=== PATIENT | female | born 1985 | race Caucasian/White ===

== ENCOUNTER 2016-07-22 08:22 | Emergency (ER) | payer MEDICAID | END 2016-07-22 08:55 | disposition home or self-care (01) | DX: K04.7 Periapical abscess without sinus (principal); R03.0 Elevated blood-pressure reading, without diagnosis of hypertension; F17.200 Nicotine dependence, unspecified, uncomplicated ==

== ENCOUNTER 2017-05-23 23:51 | Emergency (ER) | payer MEDICAID ==
--- NOTE | 2017-05-24 00:56 | ED Physician Documentation ---
PD HPI ABD PAIN - Stated complaint Stated Complaint: ABDOMINAL PAIN - Chief complaint Chief Complaint: Abd Pain - History obtained from History obtained from: Patient - History of Present Illness Timing - onset: How many hours ago (approximately 4 hours INSOLE FILLER), Today Timing - details: Abrupt onset Pain level now: 5 Quality: Pain Location: RUQ, Epigastric, LUQ Radiation: No: Chest, , Lower back, Left flank, Left shoulder, Right flank, Right shoulder, Upper back Improved by: Other (no ameliorating factors) Worsened by: Palpation Associated symptoms: Diarrhea. No: Fever, Vomiting Similar symptoms before: Has not had sx before Recently seen: Other (PMD lasr week for cough, no testing or prescription) - Additional information Additional information: c/o 4 hours of sudden onset upper abdominal pain, waxing and waning. also cough x 1-2 months. Review of Systems Constitutional: reports: Reviewed and negative Cardiac: reports: Reviewed and negative Respiratory: reports: Cough. denies: Dyspnea GI: reports: Abdominal Pain, Diarrhea. 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 - Past Surgical History Past Surgical History: Yes General: Appendectomy HEENT: Tonsil/Adenoidectomy - Present Medications Home Medications: Ambulatory Orders Medication Instructions Recorded Confirmed Amoxicillin 500 mg PO TID #21 capsule 07/22/16 oxyCODONE/ACET 5/325 [Percocet 5 1 each PO Q4-6H PRN #12 tablet 07/22/16 mg/325 mg] Benzonatate [Tessalon Perle] 100 mg PO Q6HR PRN #20 capsule 05/24/17 guaiFENesin/CODEINE [Robitussin AC] 5 - 10 ml PO Q6H PRN #100 udc 05/24/17 - Allergies Allergies/Adverse Reactions: Allergies Allergy/AdvReac Type Severity Reaction Status Date / Time acetaminophen [From Vicodin] AdvReac Emesis Verified 05/23/17 23:54 hydrocodone bitartrate * AdvReac Emesis Verified 05/23/17 23:54 [From Vicodin] - Social History Does the pt smoke?: Yes Smoking Status: Current every day smoker Does the pt drink ETOH?: No Does the pt have substance abuse?: No - Immunizations Immunizations are current?: Yes - POLST Patient has POLST: No PD ED PE NORMAL - Vitals Vital signs reviewed: Yes - General General: Alert and oriented X 3, No acute distress, Well developed/nourished - Cardiac Cardiac: RRR, No murmur - Respiratory Respiratory: No respiratory distress, Clear bilaterally - Abdomen Abdomen: Normal bowel sounds, Soft, Non distended, No organomegaly, Other (mild RUQ and epigastric tenderness) - Back Back: No CVA TTP - Derm Derm: Normal color, Warm and dry Results - Vitals Vitals: Vital Signs - 24 hr 05/23/17 05/24/17 23:54 03:35 Temperature 36.7 C Heart Rate 90 55 L Respiratory 18 16 Rate Blood Pressure 128/89 H 113/75 O2 Saturation 97 98 Oxygen O2 Source Room air - Labs Labs: Laboratory Tests 05/24/17 05/24/17 05/24/17 01:15 01:15 01:25 WBC 11.5 H RBC 5.17 Hgb 14.0 Hct 43.0 MCV 83.2 MCH 27.2 MCHC 32.7 RDW 12.9 Plt Count 203 MPV 9.0 Neut # 7.6 H Lymph # 2.5 [place] # 1.0 Eos # 0.4 Baso # 0.1 Absolute Nucleated RBC 0.00 Nucleated RBC % 0.0 Sodium 138 Potassium 3.7 Chloride 104 Carbon Dioxide 27 Anion Gap 7.0 BUN 13 Creatinine 0.6 Estimated GFR (MDRD) 117 Glucose 91 Calcium 8.9 Total Bilirubin 0.3 AST 15 ALT 16 Alkaline Phosphatase 61 Total Protein 7.3 Albumin 4.3 Globulin 3.0 Albumin/Globulin Ratio 1.4 Lipase 18 L Urine Color YELLOW Urine Clarity CLEAR Urine pH 6.0 Ur Specific [place] >=1.030 H Urine Protein NEGATIVE Urine Glucose (UA) NEGATIVE Urine Ketones NEGATIVE Urine Occult Blood TRACE-LYSE Urine Nitrite NEGATIVE Urine Bilirubin NEGATIVE Urine Urobilinogen 0.2 (NORMAL) Ur Leukocyte Esterase NEGATIVE Ur Microscopic Review NOT INDICATED Urine Culture Comments NOT INDICATED Urine HCG, Qual NEGATIVE - Rads (name of study) RUQ US Radiology: Prelim report reviewed, See rad report PD MEDICAL DECISION MAKING - ED course Complexity details: reviewed results, re-evaluated patient, considered differential, d/w patient Departure - Departure Disposition: 01 Home, Self Care Clinical Impression: Abdominal pain, Viral URI with cough Condition: Good Instructions: ED Abdominal Pain Unkn Cause, ED Upper Resp Infec No Abx Tx Prescriptions: Benzonatate [Tessalon Perle] 100 mg PO Q6HR PRN #20 capsule PRN Reason: Cough guaiFENesin/CODEINE [Robitussin AC] 5 - 10 ml PO Q6H PRN #100 udc PRN Reason: Cough Discharge Date/Time: 05/24/17 04:51
[2017-05-24 01:33] LABS: BILIRUBIN,URINE NEGATIVE (NEGATIVE); GLUCOSE, URINE (UA) NEGATIVE (NEGATIVE); KETONES,URINE (UA) NEGATIVE (NEGATIVE); LEUKOCYTE ESTERASE, URINE NEGATIVE (NEGATIVE); NITRITE,URINE NEGATIVE (NEGATIVE); OCCULT BLOOD,URINE TRACE-LYSE (NEGATIVE); PROTEIN,URINE NEGATIVE (NEGATIVE); UROBILINOGEN,URINE 0.2 (NORMAL) E.U./dL (NORMAL)
[2017-05-24 01:34] LABS: CLARITY,URINE CLEAR (CLEAR)
[2017-05-24 01:35] LABS: HCG UR QUAL NEGATIVE
[2017-05-24 01:37] LABS: ALBUMIN 4.3 g/dL (3.2-5.5); ALBUMIN/GLOBULIN RATIO 1.4 (1.0-2.2); BILIRUBIN,TOTAL 0.3 mg/dL (0.2-1.0); CALCIUM 8.9 mg/dL (8.5-10.3); CREATININE 0.6 mg/dL (0.4-1.0); TOTAL PROTEIN 7.3 g/dL (6.7-8.2)
[2017-05-24 02:02] LABS: BASOPHILS # (AUTO) 0.1 10^3/uL (0.0-0.1); BASOPHILS % (AUTO) 0.5 %; EOSINOPHILS # (AUTO) 0.4 10^3/uL (0.0-0.7); EOSINOPHILS % (AUTO) 3.3 %; LYMPHOCYTES # (AUTO) 2.5 10^3/uL (1.5-3.5); LYMPHOCYTES % (AUTO) 22.1 %; MEAN CORPUSCULAR HEMOGLOBIN 27.2 pg (27.0-31.0); MEAN CORPUSCULAR HGB CONC 32.7 g/dL (32.0-36.0); MEAN CORPUSCULAR VOLUME 83.2 fL (81.0-99.0); MONOCYTES % (AUTO) 8.3 %; NEUTROPHILS # (AUTO) 7.6 10^3/uL (1.5-6.6); NEUTROPHILS % (AUTO) 65.8 %; PLT - PLATELET COUNT 203 10^3/uL (130-450); RED BLOOD COUNT 5.17 10^6/uL (4.20-5.40); RED CELL DISTRIBUTION WIDTH 12.9 % (12.0-15.0); WHITE BLOOD COUNT 11.5 x10^3/uL (4.8-10.8)
--- NOTE | 2017-05-24 02:16 | XRAY Report ---
EXAM: CHEST RADIOGRAPHY EXAM DATE: 05/24/2017 01:37 AM. CLINICAL HISTORY: Cough, dyspnea. COMPARISON: 12/07/2008 TECHNIQUE: 2 views. FINDINGS: Lungs/Pleura: No focal opacities evident. No pleural effusion. No pneumothorax. Normal volumes. Mediastinum: Heart and mediastinal contours are unremarkable. Other: None. IMPRESSION: Stable appearance of the chest without acute cardiopulmonary abnormality. [facility] Referring Provider Line: [phone] SITE ID: [id number]
--- NOTE | 2017-05-24 02:16 | XRAY Preliminary Report ---
Exam: XR CHEST 2 VIEW X-RAY IMPRESSION: Stable appearance of the chest without acute cardiopulmonary abnormality. [facility] SITE ID: [id number]
--- NOTE | 2017-05-24 03:13 | Ultrasound Preliminary Report ---
Exam: US ABDOMEN LIMITED IMPRESSION: 1. Again noted is a 5 mm gallbladder polyp. No evidence of cholecystitis or biliary dilation. 2. There is moderate hepatic steatosis. Moderate hepatomegaly. [facility] SITE ID: [id number]
--- NOTE | 2017-05-24 03:13 | Ultrasound Report ---
EXAM: ABDOMEN ULTRASOUND LIMITED, RUQ EXAM DATE: 05/24/2017 02:38 AM. CLINICAL HISTORY: Upper abdominal pain COMPARISON: 10/27/2011 TECHNIQUE: Real-time scanning was performed with static images obtained. FINDINGS: Liver: Moderate increased echogenicity. No suspicious focal lesion. Liver measures 19.4 cm in length. Portal Vein: Patent with hepatopetal flow. Gallbladder: Partially distended gallbladder. There is a 5 mm gallbladder polyp. No pathologic wall t hickening. No melisa-cholecystic fluid. Biliary System: CBD measures 4.7 mm. No intrahepatic or extrahepatic ductal dilatation. Pancreas: Normal appearing head and body. Other portions are obscured by overlying structures. Right Kidney: Visualized portions of the right kidney are without significant abnormality. Right kid pat measures 11.6 cm in length. Other: None. IMPRESSION: 1. Again noted is a 5 mm gallbladder polyp. No evidence of cholecystitis or biliary dilation. 2. There is moderate hepatic steatosis. Moderate hepatomegaly. [facility] Referring Provider Line: [phone] SITE ID: [id number]
[2017-05-24 03:36] VITALS: BP 113/75
[2017-05-24] MEDS ORDERED: guaiFENesin/CODEINE 5 ML UDC PO STA (04:42)
[2017-05-24] MEDS ORDERED: BENZONATATE 100 MG CAPSULE PO STA (04:42)
== END 2017-05-24 04:51 | disposition home or self-care (01) ==
LOC: ED 23:51
DX: J06.9 Acute upper respiratory infection, unspecified (principal); B97.89 Other viral agents as the cause of diseases classified elsewhere; R05 Cough; F17.200 Nicotine dependence, unspecified, uncomplicated
CPT/HCPCS: 36415; 71046; 76705; 80053; 81003; 81025; 83690; 85025; 99283; 99284; A9270; 81001; 87086

== ENCOUNTER 2017-08-06 17:35 | Outpatient (CLI) | payer MEDICAID | END 2017-08-06 17:36 | disposition EMS.NT | LOC: EMS 17:35 | PROVIDERS: ATTEND Surgery | DX: M25.551 Pain in right hip (principal); M25.512 Pain in left shoulder; V43.52XA Car driver injured in collision with other type car in traffic accident, initial encounter; Y92.410 Unspecified street and highway as the place of occurrence of the external cause ==

== ENCOUNTER 2017-08-06 19:33 | Emergency (ER) | payer MEDICAID, OTHER ==
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
[2017-08-06] MEDS ORDERED: oxyCOD/ACETAMIN 5 MG/325 MG TABLET PO STA (22:18)
[2017-08-06] MEDS ORDERED: IBUPROFEN 600 MG TABLET PO STA (22:18)
[2017-08-06] MEDS ORDERED: METHOCARBAMOL 500 MG TABLET PO STA (22:19)
--- NOTE | 2017-08-06 22:56 | XRAY Preliminary Report ---
Exam: XR CHEST 2 VIEW X-RAY IMPRESSION: No acute cardiopulmonary disease seen. [facility] SITE ID: [id number]
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
[2017-08-06 23:06] VITALS: BP 120/94
--- NOTE | 2017-08-06 23:07 | XRAY Preliminary Report ---
Exam: XR CERVICAL SPINE 2 VIEW IMPRESSION: No evidence for acute fracture. See above. [facility] SITE ID: [id number]
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
== END 2017-08-06 23:40 | disposition home or self-care (01) ==
LOC: ED 19:33
DX: S16.1XXA Strain of muscle, fascia and tendon at neck level, initial encounter (principal); S70.01XA Contusion of right hip, initial encounter; S20.211A Contusion of right front wall of thorax, initial encounter; V49.40XA Driver injured in collision with unspecified motor vehicles in traffic accident, initial encounter; F17.200 Nicotine dependence, unspecified, uncomplicated
CPT/HCPCS: 71046; 72040; 73502; 99283; A9270

== ENCOUNTER 2017-08-13 08:39 | Outpatient (CLI) | payer MEDICAID, OTHER ==
--- NOTE | 2017-08-13 12:33 | XRAY Report ---
TWO VIEW LEFT FOURTH TOE: 08/13/2017 CLINICAL INDICATION: Pain. FINDINGS: Frontal and lateral views of the left fourth toe demonstrate no evidence of acute fracture. The joint spaces are preserved. No radiopaque foreign body is seen in the soft tissues. IMPRESSION: NORMAL LEFT FOURTH TOE. TD: 08/13/2017 12:32
== END 2017-08-13 08:40 | disposition home or self-care (01) ==
LOC: DI.N 08:39
PROVIDERS: ATTEND Nurse Practitioner Gerontology
DX: M79.675 Pain in left toe(s) (principal)
CPT/HCPCS: 73660

== ENCOUNTER 2019-06-14 16:23 | Outpatient (CLI) | payer MEDICAID ==
--- NOTE | 2019-06-15 01:07 | Ultrasound Report ---
Reason: MASS Procedure Date: 06/14/2019 Accession Number: [id number] / [id number] Procedure: US - Pelvic w/Transvaginal CPT Code: Final Report FULL RESULT: EXAM: PELVIC ULTRASOUND EXAM DATE: 06/14/2019 04:31 PM. CLINICAL HISTORY: Palpable mass on pelvic exam, golf ball sized and tender. History of ovarian cyst. COMPARISON: None. TECHNIQUE: Realtime transabdominal pelvic scan performed to identify the uterus and adnexa and as an overview of other pelvic structures, followed by transvaginal scan to provide greater detail of the uterus and adnexa, with static image documentation. FINDINGS: Uterus: 9.3 x 4.2 x 5.9 cm, volume 122 cc. Anteverted position. Normal overall size and echotexture. Masses: None. Endometrium: 2 mm. Normal. Intrauterine device is in place. Cervix: Unremarkable. Right Ovary: 2.2 x 2.2 x 3.2 cm, volume 10.8 cc. Normal echotexture and blood flow. Left Ovary: 4.2 x 2.5 x 3 cm, volume 16.2 cc. Normal echotexture and blood flow. Hemorrhagic follicle in the left ovary measuring 2.7 cm. Free Fluid: None. IMPRESSION: Within normal limits. [facility]
== END 2019-06-14 16:24 | disposition home or self-care (01) ==
LOC: DI 16:23
PROVIDERS: ATTEND Nurse Practitioner Gerontology
DX: R19.00 Intra-abdominal and pelvic swelling, mass and lump, unspecified site (principal); Z87.42 Personal history of other diseases of the female genital tract
CPT/HCPCS: 76830; 76856

== ENCOUNTER 2019-07-06 15:16 | Outpatient (CLI) | payer MEDICAID ==
--- NOTE | 2019-07-07 07:26 | Ultrasound Report ---
Reason: HX OF OVARIAN CYST Procedure Date: 07/06/2019 Accession Number: [id number] / [id number] Procedure: US - Pelvic w/Transvaginal CPT Code: Final Report FULL RESULT: EXAM: PELVIC ULTRASOUND EXAM DATE: 07/06/2019 04:20 PM. CLINICAL HISTORY: History of ovarian cyst. COMPARISON: PELVIC W/TRANSVAGINAL 06/14/2019 4:31 PM. TECHNIQUE: Realtime transabdominal pelvic scan performed to identify the uterus and adnexa and as an overview of other pelvic structures, followed by transvaginal scan to provide greater detail of the uterus and adnexa, with static image documentation. FINDINGS: Uterus: 9.1 x 4.6 x 6.0 cm, volume 130 cc. Anteverted position. Normal overall size and echotexture. Masses: None. Endometrium: 4 mm. Limited visualization due to intrauterine device in expected position. Cervix: Unremarkable. Right Ovary: 3.0 x 3.2 x 2.4 cm, volume 12.1 cc. Normal echotexture and blood flow. Left Ovary: 3.8 x 2.7 x 3.3 cm, volume 17.7 cc. Somewhat complex cyst measuring 2.0 x 2.0 x 1.8 cm, expected appearance of normal evolution of previously seen hemorrhagic follicle. Free Fluid: None. Other: None. IMPRESSION: 2 cm left ovarian cyst with mild internal complexity, compatible with interval evolution of the previously described hemorrhagic follicle. [facility]
== END 2019-07-06 15:17 | disposition home or self-care (01) ==
LOC: DI 15:16
PROVIDERS: ATTEND Nurse Practitioner Gerontology
DX: N83.202 Unspecified ovarian cyst, left side (principal)
CPT/HCPCS: 76830; 76856

== ENCOUNTER 2019-07-13 11:53 | Outpatient (CLI) | payer MEDICAID ==
[2019-07-13 21:11] LABS: TRICHOMONAS VAGINALIS DNA NEGATIVE (NEGATIVE)
[2019-07-15 10:35] LABS: HEPATITIS C ANTIBODY NON-REACTIVE (NON-REACTIVE)
[2019-07-15 14:40] LABS: HIV AG/AB 4TH GEN NON-REACTIVE (NON-REACTIVE)
[2019-07-16 11:45] LABS: HSV 1 IGG TYPE SPECIFIC AB 7.57 index; HSV 2 IGG TYPE SPECIFIC AB 8.66 index
== END 2019-07-13 23:59 | disposition home or self-care (01) ==
LOC: LAB.N 11:53
PROVIDERS: ATTEND Nurse Practitioner Gerontology
DX: Z11.3 Encounter for screening for infections with a predominantly sexual mode of transmission (principal)
CPT/HCPCS: 36415; 81599; 86592; 86695; 86696; 86803; 87389; 87491; 87591; 87661

== ENCOUNTER 2020-08-03 08:00 | Outpatient (CLI) | payer MEDICAID ==
[2020-08-03 16:45] LABS: MUDS CUTOFF CONCENTRATIONS CUTOFF CONC BELOW:
[2020-08-03 16:51] LABS: BILIRUBIN,URINE NEGATIVE (NEGATIVE); GLUCOSE, URINE (UA) NEGATIVE (NEGATIVE); KETONES,URINE (UA) NEGATIVE (NEGATIVE); LEUKOCYTE ESTERASE, URINE NEGATIVE (NEGATIVE); NITRITE,URINE NEGATIVE (NEGATIVE); OCCULT BLOOD,URINE NEGATIVE (NEGATIVE); PH,URINE 7.5 PH (5.0-7.5); PROTEIN,URINE NEGATIVE (NEGATIVE); UROBILINOGEN,URINE 0.2 (NORMAL) E.U./dL (NORMAL)
[2020-08-03 16:54] LABS: CLARITY,URINE CLEAR (CLEAR)
[2020-08-03 17:02] LABS: AMPHETAMINE SCREEN,URINE NEGATIVE (NEGATIVE); BARBITURATE SCREEN,UR NEGATIVE (NEGATIVE); BENZODIAZEPINES SCREEN, URINE NEGATIVE (NEGATIVE); COCAINE SCREEN URINE NEGATIVE (NEGATIVE); METHADONE SCREEN, URINE NEGATIVE (NEGATIVE); METHAMPHETAMINES SCREEN, URINE NEGATIVE (NEGATIVE); OPIATE SCREEN, URINE NEGATIVE (NEGATIVE); OXYCODONE SCREEN, URINE NEGATIVE (NEGATIVE); PROPOXYPHENE SCREEN, URINE NEGATIVE (NEGATIVE); THC CANNABINOID SCREEN, URINE POSITIVE (NEGATIVE); TRICYCLIC ANTIDEPRESSANT,URINE NEGATIVE (NEGATIVE)
[2020-08-03 17:07] LABS: BACTERIA,URINE None Seen /HPF (None Seen); RBC,URINE None Seen /HPF (0-5); SQUAMOUS EPITHELIAL CELL,UR FEW Squamous (<= Few); WBC,URINE 0-3 /HPF (0-5)
== END 2020-08-03 23:59 | disposition home or self-care (01) ==
LOC: LAB.R 08:00
PROVIDERS: ATTEND Nurse Practitioner Obstetrics & Gynecology
DX: Z32.01 Encounter for pregnancy test, result positive (principal)
CPT/HCPCS: 80306; 80349; 81001; 81599; 87086

== ENCOUNTER 2020-08-17 14:59 | Outpatient (CLI) | payer MEDICAID ==
--- NOTE | 2020-08-18 12:36 | Ultrasound Report ---
PROCEDURE: OB First Trimester w/TV INDICATIONS: TEST POSITIVE OUTSIDE/PRIOR DATING DATA: Last menstrual period (LMP): . LMP-based estimated date of delivery (CHRIS): 04/03/2021. First dating scan (date and location): 08/17/2020. Estimated date of delivery (CHRIS) from first dating scan: 04/02/2021. TECHNIQUE: Real-time scanning was performed of the fetus and maternal pelvic organs, with image documentation. Endovaginal scanning was also performed to better visualize the fetus and maternal ovaries. COMPARISON: None FINDINGS: Embryo: Bay-rump length measures 1.2 cm corresponding to 7 weeks 3 days. Embryonic heart rate brain ured at 155 bpm. Small perigestational segment side measuring 1.5 x 0.5 x 0.3 cm. Measurement variability in dating: +/- 4 weeks by LMP, +/- 7 days by mean sac diameter (use before 6 weeks gestation if crown-rump length not able to be measured), +/- 5 days by crown-rump length (6-12 weeks gestation). Maternal organs: Ovaries within normal limits, with corpus luteal cyst measuring 2.4 cm. IMPRESSION: 7 week 3 day single living IUP corresponding to ultrasound CHRIS of 04/02/2021. EDC by LMP is 04/03/2021. Reviewed by: AKOSUA Chow on 08/17/2020 4:52 PM PDT Approved by: Chris Pena MD on 08/17/2020 4:52 PM PDT Station ID: [id number]
== END 2020-08-17 15:00 | disposition home or self-care (01) ==
LOC: DI 14:59
PROVIDERS: ATTEND Nurse Practitioner Obstetrics & Gynecology
DX: Z32.01 Encounter for pregnancy test, result positive (principal)

== ENCOUNTER 2020-08-29 08:00 | Outpatient (CLI) | payer MEDICAID ==
[2020-08-30 00:27] LABS: CHLAMYDIA TRACHOMATIS DNA NEGATIVE (NEGATIVE); NEISSERIA GONORRHOEAE DNA NEGATIVE (NEGATIVE); TRICHOMONAS VAGINALIS DNA NEGATIVE (NEGATIVE)
== END 2020-08-29 23:59 | disposition home or self-care (01) ==
LOC: LAB.WC 08:00
PROVIDERS: ATTEND Advanced Practice Midwife
DX: Z34.90 Encounter for supervision of normal pregnancy, unspecified, unspecified trimester (principal); Z36.89 Encounter for other specified antenatal screening
CPT/HCPCS: 87491; 87591; 87661

== ENCOUNTER 2020-08-29 09:44 | Outpatient (CLI) | payer MEDICAID ==
[2020-08-29 10:15] LABS: BASOPHILS % (AUTO) 0.5 %; EOSINOPHILS # (AUTO) 0.2 10^3/uL (0.0-0.7); EOSINOPHILS % (AUTO) 2.6 %; HCT - HEMATOCRIT 42.1 % (37.0-47.0); HGB - HEMOGLOBIN 13.7 g/dL (12.0-16.0); LYMPHOCYTES # (AUTO) 1.9 10^3/uL (1.5-3.5); LYMPHOCYTES % (AUTO) 25.1 %; MEAN CORPUSCULAR HEMOGLOBIN 26.7 pg (27.0-31.0); MEAN CORPUSCULAR HGB CONC 32.5 g/dL (32.0-36.0); MEAN CORPUSCULAR VOLUME 81.9 fL (81.0-99.0); MEAN PLATELET VOLUME 10.4 fL (7.9-10.8); MONOCYTES # (AUTO) 0.7 10^3/uL (0.0-1.0); MONOCYTES % (AUTO) 9.4 %; NEUTROPHILS # (AUTO) 4.8 10^3/uL (1.5-6.6); NEUTROPHILS % (AUTO) 62.1 %; PLT - PLATELET COUNT 246 10^3/uL (130-450); RED BLOOD COUNT 5.14 10^6/uL (4.20-5.40); RED CELL DISTRIBUTION WIDTH 12.4 % (12.0-15.0); WHITE BLOOD COUNT 7.7 x10^3/uL (4.8-10.8)
[2020-08-30 12:32] LABS: HEPATITIS B SURFACE ANTIGEN NON-REACTIVE (NON-REACTIVE)
[2020-08-30 12:47] LABS: HEPATITIS C ANTIBODY NON-REACTIVE (NON-REACTIVE)
[2020-08-30 15:06] LABS: HIV AG/AB 4TH GEN NON-REACTIVE (NON-REACTIVE)
== END 2020-08-29 09:45 | disposition home or self-care (01) ==
LOC: LAB 09:44
PROVIDERS: ATTEND Advanced Practice Midwife
DX: Z34.90 Encounter for supervision of normal pregnancy, unspecified, unspecified trimester (principal); Z36.89 Encounter for other specified antenatal screening
CPT/HCPCS: 36415; 85025; 86592; 86762; 86787; 86803; 86850; 86900; 86901; 87340; 87389; 87491; 87591; 87661

== ENCOUNTER 2020-11-18 14:33 | Outpatient (CLI) | payer MEDICAID ==
--- NOTE | 2020-11-18 20:31 | Ultrasound Report ---
PROCEDURE: OB Detailed Eval INDICATIONS: SUPERVISION OF OUTSIDE/PRIOR DATING DATA: Last menstrual period (LMP): 06/27/2020. LMP-based estimated date of delivery (CHRIS): 04/03/2021. First dating scan (date and location): 08/17/2020. Estimated date of delivery (CHRIS) from first dating scan: 04/02/2021. The below data below was generated using the above CHRIS of 04/02/2021 TECHNIQUE: Real-time scanning was performed of the fetus, with image documentation and biometric measurements. Endovaginal scanning: Not needed COMPARISON: Prior OB ultrasound for this , 08/17/2020 FINDINGS: General: A single living intrauterine gestation is present. Presentation: Breech Placenta: Placental position is posterior, without previa. Amniotic fluid index: 15.0 cm, normal for gestational age. heart rate: 148 beats per minute. Maternal cervical canal: 4.1 cm long; normal length is 2.5 cm or more. biometrics: Biparietal diameter: 4.9 cm, 20 weeks 5 days Head circumference: 18.2 cm, 20 weeks 4 days Abdominal circumference: 16.9 cm, 21 weeks 6 days Femur length: 3.5 cm, 21 weeks 0 days Estimated gestational age from initial scan: 20 weeks 5 days. Composite gestational age from present scan: 20 weeks 6 days Estimated weight and percentile: 418 g, 79th percentile Measurement variability in biometric dating: +/- 10 days from 12-20 weeks gestation, +/- 2 weeks from 20-30 weeks gestation, +/- 3 weeks at 30 weeks gestation or later. Anatomic survey: Neuro: Ventricles are normal at less than 10 mm. Cisterna magna is normal at 3-11 mm. Cerebellum i s normal in size and morphology. Nuchal skin fold: Not well seen Face: Not well seen. Spine: No evidence for spina bifida. Heart: 4-chambered heart is present, with poorly visualized ventricular outflow tracts. Diaphragm: Diaphragm is intact. Stomach: Left-sided stomach is present. Kidneys: No hydronephrosis. Normal is less than 5 mm in 2nd trimester, less than 7 mm in 3rd trimester. Cord: 3 vessel cord has orthotopic insertion. Bladder: Normal in size. Extremities: All 4 extremities are visualized. IMPRESSION: Appropriate interval growth of the anatomic survey is incomplete as noted above. Follow-up in 7 -10 days is recommended to complete the anatomic survey. This should include visualization of t he facial area, ventricular outflow tract, and nuchal subcutaneous thickness. Reviewed by: Simeon Bianchi MD on 11/18/2020 8:29 PM PDT Approved by: Simeon Bianchi MD on 11/18/2020 8:29 PM PDT Station ID: [id number]
== END 2020-11-18 14:34 | disposition home or self-care (01) ==
LOC: DI 14:33
PROVIDERS: ATTEND Nurse Practitioner Obstetrics & Gynecology
DX: Z34.00 Encounter for supervision of normal first pregnancy, unspecified trimester (principal); Z36.89 Encounter for other specified antenatal screening

== ENCOUNTER 2020-11-30 16:51 | Outpatient (CLI) | payer MEDICAID ==
--- NOTE | 2020-12-01 11:10 | Ultrasound Report ---
PROCEDURE: OB F/U or Repeat INDICATIONS: SUPERVISION OF OUTSIDE/PRIOR DATING DATA: Last menstrual period (LMP): 06/27/2020. LMP-based estimated date of delivery (CHRIS): 04/03/2021. First dating scan (date and location): 08/17/2020. Estimated date of delivery (CHRIS) from first dating scan: 04/02/2021. The below data below was generated using the ultrasound generated CHRIS of 04/02/2021 TECHNIQUE: Real-time scanning was performed of the fetus, with image documentation and biometric measurements. Endovaginal scanning: Not performed COMPARISON: None. FINDINGS: General: A single living intrauterine gestation is present. Presentation: Breech Placenta: Placental position is posterior, without previa. Amniotic fluid index: 16.7 cm, normal for gestational age. heart rate: 152 beats per minute. Maternal cervical canal: 5.3 cm long; normal length is 2.5 cm or more. Normal appearance of the face and nuchal region. Normal four-chamber cardiac anatomy with normal appearance of the outflow tracts. The chest, stomach, kidneys, and urinary bladder are normal. Other: Not applicable. IMPRESSION: Single live intrauterine gestation. Normal appearance of the anatomy upon completion of the fet al anatomic survey. Reviewed by: Gerard Smith MD on 12/01/2020 11:09 AM PDT Approved by: Gerard Smith MD on 12/01/2020 11:09 AM PDT Station ID: [id number]
== END 2020-11-30 16:52 | disposition home or self-care (01) ==
LOC: DI 16:51
PROVIDERS: ATTEND Nurse Practitioner Obstetrics & Gynecology
DX: Z34.00 Encounter for supervision of normal first pregnancy, unspecified trimester (principal); Z36.89 Encounter for other specified antenatal screening